=== PATIENT | female | born 1940 | race Caucasian/White ===

== ENCOUNTER 2017-08-09 15:33 | Inpatient (IN) | payer OTHER, MEDICARE ==
[~2017-08-09] VITALS: Ht 170.2 cm; Wt 57.2 kg
--- NOTE | ~2017-08-09 | HC ---
[facility] [place] [address] CONSULTATION Name: MORALEZLISBETH Liana Room #: 441-P ADM IN M.R.#: [id number] Admission: 08/09/17 Attend Phys: Maninder Reyes MD Discharge: Date of : 40 Report #: [id number] THIS REPORT FOR: //name// CC: Jayce Riley DATE OF SERVICE: 08/09/2017 PULMONARY CONSULTATION REFERRING PROVIDERS: Dr. Jayce Christianson as well as ____ in [place], [place] and Dr. Douglas Sorenson. REASON FOR CONSULTATION: Hemoptysis and abnormal CT scan of the chest. HISTORY OF PRESENT ILLNESS: Our group was asked to see this patient in consultation while hospitalized at [facility], a pleasant 77-year-old woman who seems like a good historian. Past pulmonary history is significant for ongoing tobacco use, presented to [facility] for further evaluation of productive cough with blood. Denies any fevers, chills or sweats or discolored sputum, only hemoptysis, it has ceased this evening. Symptoms sound like less than 20 mL of total blood produced. Denies any chest pain, has had some ongoing weight loss and diminished appetite with about a 30 pound weight loss over the last 3 months. Denies any fevers, chills or sweats. No recent antibiotics. While in the Emergency Department at [facility], CT scan of the chest revealed a 4.7 x 3.7 cm mass lesion in the superior segment of the left lower lobe as well as a right-sided pulmonary nodule as well of concern. The patient does have a history of colon cancer, but that is very remote and finished treatment 12 years ago, previously had been managed by Dr. Douglas Sorenson and Dr. Abhishek Love. No other pulmonary history. No pulmonary medications. ALLERGIES: None known. OUTPATIENT MEDICATIONS: Include glipizide, metformin, metoprolol, aspirin, multivitamin. PAST MEDICAL HISTORY: 1. Diabetes mellitus, type 2. 2. History of tobacco use. 3. History of colon cancer, status post resection in 2004, also treated with chemotherapy and radiation at that time. 4. Mild coronary artery disease. SOCIAL HISTORY: Active smoker, no alcohol consumption. Currently, is retired. 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 FAMILY HISTORY: Significant for coronary artery disease, COPD and diabetes mellitus. REVIEW OF SYSTEMS: As described in HPI. Rest of 12-point review of systems normal. No neurologic symptoms. PHYSICAL EXAMINATION: VITAL SIGNS: Afebrile, pulse 87, respiratory rate 18, blood pressure 116/89, oxygen saturation 92% on room air. GENERAL: This is a pleasant elderly woman, in no distress. ENT: Clear oropharynx. No thrush. NECK: Supple, no lymphadenopathy. LUNGS: Diminished, but clear. No wheezes or crackles. CARDIOVASCULAR: Heart regular. No murmurs or gallops. ABDOMEN: Soft, nontender, no masses. EXTREMITIES: Warm with 1+ edema. LABORATORY DATA: White blood cell count 4000, hemoglobin 10, hematocrit 29, platelet count 239, MCV was 85. Sodium 141, potassium 3.5, chloride 104, bicarbonate 26, BUN 11, creatinine 0.5, glucose 127. Total protein 4.8, albumin 2.0. INR 1.0. IMPRESSION: 1. Lung mass in the left lung with right upper lobe pulmonary nodules, worrisome for metastatic disease, suspect bronchogenic carcinoma. Given symptoms, I doubt this is a recurrent colon cancer. I am concerned about the anemia that is noted. The patient recently was also started on iron supplementation by her primary provider and it is unclear the extent of the workup. 2. Anemia, as described above. 3. Ongoing tobacco abuse. 4. Weight loss. Suggest: 1. Hematology/Oncology consultation. 2. Percutaneous biopsy of the left lower lobe peripheral nodule or mass. 3. Outpatient PET imaging. 4. Consider MRI of the brain to evaluate metastatic disease. 5. Further workup of anemia. 6. Additional recommendations to follow. [address] [address] CONSULTATION Name: NAOMYLISBETH Room #: 441-P [facility] IN M.R.#: [id number] Admission: 08/09/17 Attend Phys: Maninder Reyes MD Discharge: Date of : 40 Report #: [id number] Thank you for requesting our suggestions. Concerns and findings discussed with the patient and her sisters who are at the bedside this evening. By: [id number] Jose J Matson MD /gustavo
--- NOTE | ~2017-08-09 | HC ---
[facility] [place] [address] CONSULTATION Name: LISBETH MORALEZ Room #: 441-P [facility] IN M.R.#: [id number] Admission: 08/09/17 Attend Phys: Maninder Reyes MD Discharge: 08/11/17 Date of : 40 Report #: [id number] THIS REPORT FOR: //name// CC: Delmar Riley REASON FOR CONSULTATION: Distant history of rectal cancer from 2003 with new onset of hemoptysis x24 hours and lung mass. HISTORY OF PRESENT ILLNESS: The patient is a very pleasant 77-year-old female who I first met about 13 years ago and participated under treatment Dr. Abhishek Love for concurrent chemo and radiation therapy. I do not have the records but this would strongly suggest that this was a rectal cancer back then. The patient had been doing well. She notes onset of about a 30-pound weight loss beginning about a year ago and also spooning of her thumbs and other nails. She also had increasing fatigue. Sometime during this year, she was noted to be anemic, has an MCV of around 70, was thought to be iron deficient. She had recently seen Dr. Danny Lopez at the [facility] who had recently performed an upper and lower endoscopy supposedly without finding any obvious source for blood loss. It sounds like they might have found H. pylori as she said that she was found to have bacterial infection, was told that she might need to be on antibiotics though this had not been begun. She had also been on iron supplements and had dark stool but only after that was begun. The patient reports that yesterday, she coughed up what was mostly phlegm and maybe had about a teaspoon of blood and pretty much it was just one time deal, had not been coughing more than usual. No headaches. No fevers, no chills. Does have her same usual cough. No new arm or leg swelling. She has noticed the spooning of her nails on both hands and she also says her feet for several months, maybe 6 to 9 months to close to a year. No change in bowel habits. No change in urine habits. No new arm or leg swelling. No new lymph node enlargement or masses that she is aware of. PAST MEDICAL HISTORY: Notable for the history of what sounds like a rectal cancer back in 2003, status post resection, chemo and radiation therapy and not known to be recurrent. Also, type 2 diabetes, history of coronary artery disease, history of recent iron deficiency. ALLERGIES: None known. MEDICATIONS: Before included glipizide, metformin, metoprolol, aspirin, [facility] [address] [place] [address] CONSULTATION Name: LISBETH MORALEZ Room #: 441-P DIS IN M.R.#: [id number] Admission: 08/09/17 Attend Phys: Maninder Reyes MD Discharge: 08/11/17 Date of : 40 Report #: [id number] multivitamins. SOCIAL HISTORY: Current smoker. No alcohol, no street drugs. She is retired. FAMILY HISTORY: Brother with prostate cancer. I think there is a sister or another family member with a modified colon cancer in older age, also emphysema and diabetes. PHYSICAL EXAMINATION: GENERAL: The patient appears her stated age. VITAL SIGNS: Height is 5 feet 7 inches, which is 170.2 cm. Weight is 126 pounds or 57.2 kg. Blood pressure is 116/89 with an O2 sat of 96% on room air, respirations 16, pulse 75, afebrile at 97.6. MOOD: She is alert and pleasant, conversant, reliable historian. NEUROLOGIC: Face is symmetric, moving extremities without any difficulty, speech pattern and thought pattern appears to be normal. LUNGS: Has mostly clear a few soft rhonchi that clear with cough. HEART: Regular rate. LYMPHATICS: No enlarged lymph nodes in supraclavicular, cervical, axillary, inguinal region. SKIN: Normal, note that she does have a cyst in the middle of her back, she says it has been there for many years. Also note that on her nails, there is spooning in all digits. ABDOMEN: Soft, without masses, scaphoid. EXTREMITIES: Without clubbing, cyanosis or edema. LABORATORY DATA: Here shows a BUN 7, creatinine 0.4. Glucose of 262 last night, most recently 111. Magnesium 1.6. Albumin 2.5, AST 17, ALT 9. Coags were normal. WBC 7.1, hemoglobin 8.5, MCV 70.7 with RDW 16.7. Differential is fairly normal. Radiologic studies here, really nothing since about 2004. ASSESSMENT AND PLAN: 1. Reported lung mass measuring approximately 4 cm by report. No images report available in the chart. I agree with plans for CT biopsy. Would be happy to see the patient as outpatient or she can follow up with Dr. Chito Araiza who she was going to see at ____ on Sunday. 2. Iron deficiency anemia. Would consider IV iron replacement or could do pill replacement, have not identified source yet and this patient may suggest a PillCam but also probably would wait and do a PET scan to evaluate her lung if this is lung cancer. Also, if this is lung cancer, would consider MRI of the head. 3. Diabetes. Continue her diet and oral agents. 4. Hypertension. Metoprolol and monitoring. [facility] [address] [place] [address] CONSULTATION Name: LISBETH MORALEZ Room #: 441-P DIS IN M.R.#: [id number] Admission: 08/09/17 Attend Phys: Maninder Reyes MD Discharge: 08/11/17 Date of : 40 Report #: [id number] 5. Followup: Would defer to others whether we see her or Dr. Araiza sees her. <ELECTRONICALLY SIGNED> By: Douglas Sorenson MD 08/12/172016 0 9 Douglas Sorenson MD /nt
--- NOTE | ~2017-08-09 | S ---
[facility] [place] [address] SURGICAL PATH RPT PROCEDURE Name: DEBI PEREIRA Room #: 441-P [facility] IN M.R.#: [id number] Admission: 08/09/17 Date of : 40 Discharge: 08/11/17 Report #: [id number] Path Case #: [id number] PATHOLOGY REPORT COLLECTION DATE: 08/10/2017 RECEIVED DATE: 08/13/2017 SUBMITTING PHYS: Dr. Maninder Reyes OTHER PHYS: Dr. Azael Matson SPECIMEN(S) RECEIVED: A.Lung biopsy, Lt lung mass * * * * * * * * * * * * FINAL DIAGNOSIS: "Lung biopsy, Lt lung mass", image guided needle biopsy: - Squamous cell carcinoma, focally keratinizing. (See comment) (CLW:jaevd; 08/14/2017) COMMENT: The case is co-reviewed with Dr. Anita Stevenson. The case is discussed with Dr. Maninder Reyes on 08/14/2017 at 12:30 PM. PATHOLOGIST: Samantha Caceres M.D. REPORT ELECTRONICALLY SIGNED BY: Samantha Caceres M.D. DATE/TIME: 08/14/2017 15:59 * * * * * * * * * * * * GROSS PATHOLOGY: Received in formalin labeled "Debi Pereira, left lung mass," are 8 distinct needle cores of valenzuela soft tissue ranging from 0.2 to 0.6 cm in length, which are submitted entirely in cassette A1 through A3. (TSD; 08/13/2017) CLINICAL HISTORY: Coughing up blood INITIAL CPT CODE(S): A; 32866 [facility] performed [facility] [address] , [place] [address] [facility] [address] [place] [address] SURGICAL PATH RPT PROCEDURE Name: DEBI PEREIRA Room #: 441-P [facility] IN [facility].#: [id number] Admission: 08/09/17 Date of : 40 Discharge: 08/11/17 Report #: [id number] Path Case #: [id number] Technical services performed by [facility] at [address] [place] [address], [facility] [address] [place] [address]. [place] [address] PHONE: [phone] DIRECTOR: Rich Saucedo M.D. * * * END OF REPORT * * *
[2017-08-09 15:50] VITALS: BP 137/50
[2017-08-09] MEDS ORDERED: GLIPIZIDE 10 MG10 MG PO (16:35)
[2017-08-09] MEDS ORDERED: GLUCOTROL5 MG PO (16:35)
[2017-08-09] MEDS ORDERED: UNICOMPLEX M TA1 TA1 PO (16:36)
[2017-08-09] MEDS ORDERED: ASPIR 8181 MG PO (16:36)
[2017-08-09] MEDS ORDERED: METFORMIN HCL500 MG PO (16:36)
[2017-08-09] MEDS ORDERED: LOPRESSOR25 PO (16:36)
[2017-08-09 19:35] VITALS: BP 116/89
[2017-08-10] VITALS (13 sets, daily range): BP systolic 109–134; BP diastolic 45–89
[2017-08-10 06:05] LABS: ABSOLUTE NEUTROPHILS 5.3 thou/uL (1.4-8.2); BASOPHILS 0.3 % (0.0-2.0); EOSINOPHILS 1.8 % (0.0-3.0); HEMATOCRIT 26.7 % (37.0-47.0); HEMOGLOBIN 8.5 gm/dL (12.0-15.0); LYMPHOCYTES 15.1 % (24.0-44.0); MCH 22.7 pg (26.0-34.0); MCHC 32.1 g/dL (28.0-37.0); MCV 70.7 fL (80.0-100.0); MONOCYTES 7.2 % (1.0-8.0); PLATELET COUNT 421 thou/uL (150-400); POLYS 75.6 % (36.0-66.0); RBC 3.77 mil/uL (4.20-5.00); RDW 16.7 % (10.5-14.5); WBC 7.1 thou/uL (4.0-11.0)
[2017-08-10 06:06] LABS: MANUAL DIFF NO
[2017-08-10 06:18] LABS: APTT 28.7 Seconds (24.5-32.8); PROTIME 10.2 Seconds (9.3-11.4)
[2017-08-10 06:19] LABS: ALBUMIN 2.5 g/dL (3.4-5.0); CALCIUM 8.3 mg/dL (8.5-10.1); CREATININE 0.4 mg/dL (0.6-1.0); MAGNESIUM 1.6 mg/dL (1.8-2.4); POTASSIUM 3.4 mmol/L (3.5-5.1); TOTAL BILIRUBIN 0.4 mg/dL (<0.1-1.0); TOTAL PROTEIN 6.1 g/dL (6.4-8.2)
[2017-08-10 07:57] LABS: OVALOCYTES FEW
[2017-08-10 07:58] LABS: ANISOCYTOSIS 1+; HYPOCHROMASIA 2+; MICROCYTES 1+
[2017-08-10 11:16] LABS: % SATURATION 7 % (20-39); IRON 20 ug/dL (50-170); TIBC 272 ug/dL (250-450); UIBC 252 ug/dL
[2017-08-10 11:43] LABS: FOLIC ACID 16.2 ng/mL (8.6-58.9)
[2017-08-11 04:55] VITALS: BP 120/50
[2017-08-11 08:00] VITALS: BP 123/50
[2017-08-11 10:55] VITALS: BP 123/50
== END 2017-08-11 13:11 | disposition home or self-care (01) | DRG 204 ==
LOC: 4S 15:33
PROVIDERS: Internal Medicine; Nurse Practitioner
PROC: 0BBJ3ZX Excision of Left Lower Lung Lobe, Percutaneous Approach, Diagnostic (ICD-10-PCS; principal; 2017-08-10)
DX: R04.2 Hemoptysis (principal); Z68.1 Body mass index [BMI] 19.9 or less, adult; R91.8 Other nonspecific abnormal finding of lung field; E11.9 Type 2 diabetes mellitus without complications; I25.10 Atherosclerotic heart disease of native coronary artery without angina pectoris; F17.210 Nicotine dependence, cigarettes, uncomplicated; R63.4 Abnormal weight loss; D50.9 Iron deficiency anemia, unspecified; I10 Essential (primary) hypertension; Z96.641 Presence of right artificial hip joint; J44.9 Chronic obstructive pulmonary disease, unspecified; Z66 Do not resuscitate; Z79.899 Other long term (current) drug therapy; Z88.6 Allergy status to analgesic agent; Z83.3 Family history of diabetes mellitus; Z82.49 Family history of ischemic heart disease and other diseases of the circulatory system; Z82.5 Family history of asthma and other chronic lower respiratory diseases; Z85.048 Personal history of other malignant neoplasm of rectum, rectosigmoid junction, and anus; Z80.42 Family history of malignant neoplasm of prostate; Z85.038 Personal history of other malignant neoplasm of large intestine; Z90.49 Acquired absence of other specified parts of digestive tract; Z93.3 Colostomy status
CPT/HCPCS: 10102